=== PATIENT | female | born 1990 | race Caucasian/White ===

== ENCOUNTER 2017-05-24 15:07 | Emergency (ER) | payer SELFPAY ==
[~2017-05-24] VITALS: Ht 170.2 cm; Wt 113.4 kg
[2017-05-24 15:13] VITALS: BP 134/89
[2017-05-24] MEDS ORDERED: IBUPROFEN 600 MG TABLET PO ONE ×2 (16:00→16:01)
--- NOTE | 2017-05-24 16:04 | NUR ---
PT FELL TODAY RT FOORT PAIN MOTRIN 600 MG PO GIVEN PER MD ORDER XRAY DONE
== END 2017-05-24 15:27 | disposition home or self-care (01) ==
LOC: ER 15:13
DX: S93.401A Sprain of unspecified ligament of right ankle, initial encounter (principal); W01.0XXA Fall on same level from slipping, tripping and stumbling without subsequent striking against object, initial encounter; Y92.89 Other specified places as the place of occurrence of the external cause; Y93.89 Activity, other specified; Y99.8 Other external cause status
CPT/HCPCS: 29515; 73610; 99285; A4606; Z7610